=== PATIENT | female | born 1975 | race Hispanic/Latino ===

== ENCOUNTER 2017-07-02 11:29 | Emergency (ER) | payer SELFPAY, OTHER ==
[~2017-07-02 11:29] MED LIST: ISOVUE-370 76%-LOCM 1 ML ONE
[2017-07-02 12:44] LABS: BHCG - Serum Negative (NEGATIVE); Pregs Control Background? CLEAR/WHITE (CLR/WHITE); Pregs Control Bar Appear? YES (CONTROL BAR)
[2017-07-02 12:48] LABS: ALT (SGPT) 56 U/L (8-55); AST (SGOT) 57 U/L (5-34); Albumin 4.3 g/dL (3.5-5.0); Alkaline Phosphatase 114 U/L (40-150); Anion Gap 15 mmol/L (10-20); BUN (Urea Nitrogen) 57 mg/dL (7.0-18.7); Bilirubin, Total 0.7 mg/dL (0.2-1.2); Calc. Creatinine Clearance 0 mL/min (70-130); Calcium 9.5 mg/dL (7.8-10.44); Carbon Dioxide 24 mmol/L (22-29); Chloride 93 mmol/L (98-107); Estimated GFR-MDRD 50; Globulin 4.4 g/dL (2.4-3.5); Glucose 138 mg/dL (70-105); Lipase 694 U/L (8-78); Magnesium 2.9 mg/dL (1.6-2.6); Potassium 3.4 mmol/L (3.5-5.1); Protein, Total 8.7 g/dL (6.0-8.3); Sodium 129 mmol/L (136-145)
[2017-07-02] MEDS ORDERED: Ondansetron HCl/PF 4 MG/2 ML Vial ONE ×2 (12:56→14:04)
[2017-07-02 13:15] LABS: Anisocytosis SLIGHT = 6-15 cells (100X) (0-5/hpf); Band 3 % (5-11); Hemoglobin 9.4 g/dL (12.0-16.0); Hypochromia SLIGHT = 6-15 cells (100X) (0-5/hpf); Lymphocytes 12 % (21-51); MDiff Complete? YES; Mean Corpuscular HGB CONC 28.3 g/dL (32.0-36.0); Mean Corpuscular Hemoglobin 14.7 pg (27.0-31.0); Mean Corpuscular Volume 51.9 fl (81.0-99.0); Mean Platelet Volume 6.8 fL (7.4-10.4); Metamyelocyte 2 % (0-0); Monocytes 7 % (0-10); Myelocyte 5 % (0-0); Neutrophil 71 % (42-75); PLT Morphology Comment Appears Increased; Platelet Count 520 thou/uL (130-400); Polychromasia MODERATE = 3-4 cells (100X) (0-2/hpf); RBC Distribution Width 18.2 % (11.5-14.5); Red Blood Cell (RBC) Count 6.38 mill/uL (4.20-5.40); White Blood Cell (WBC) Count 15.9 thou/uL (4.8-10.8)
[2017-07-02] MEDS ORDERED: Piperacillin/Tazobactam 4.5 GM in Sodium Chloride 0.9% 100 ML IVPB SCH (13:45)
[2017-07-02] MEDS ORDERED: Morphine 4 MG/ML VIAL ONE (14:34)
[2017-07-02 14:47] LABS: Bilirubin Negative (Negative); Blood, Urine Trace (Negative); Clarity CLEAR (Clear); Glucose, Urine (Dipstick) Negative (Negative); Leukocyte Negative (Negative); Nitrite Negative (Negative); Protein, Urine (Dipstick) Trace mg/dL (Neg-Trace); Urobilinogen 0.2 mg/dL (0.2-1.0)
[2017-07-02 14:49] LABS: Pathc Cast-AUWi Flag 0.27 (0-2.49)
[2017-07-02 14:54] LABS: Specific Gravity, Urine 1.043 (1.002-1.036)
[2017-07-02 15:09] LABS: Bacteria/HPF None Seen HPF (None Seen); Hyaline Casts/LPF NONE SEEN LPF (0-3 Hyaline); RBC/HPF 0-3 HPF (0-3)
--- NOTE | 2017-07-02 15:44 | CT ---
CT ABDOMEN WITH CONTRAST CT PELVIS WITH CONTRAST: DATE: 07-02-2017 TIME: 1:15 p.m. HISTORY: 42-year-old female with nausea, emesis, and diarrhea for five days. Dr. Velazquez reported the pneumomediastinum around the esophagus by telephone with Dr. Mamta Jiménez at 1:3 3 p.m. on 07-02-2017. COMPARISON: 02-06-13 TECHNIQUE: IV injection of iodinated contrast media: Administered Oral contrast media: Not administered FINDINGS: There is a new finding of extraluminal gas around the inferior portion of the esophagus, in the poste rior inferior mediastinum. This gas tracks inferiorly a short distance to reach the periaortic region at the level of the diaphragmatic jeny. The abdominal aorta, bilateral kidneys, adrenals, pancreas, liver, spleen, and appendix are normal. No small bowel dilatation. There is diffuse mild mural thicke teresa and mild mural enhancement of the entire colon, suggestive of a mild diffuse colitis, consistent with the stated history of diarrhea. There is no pneumoperitoneum, ascites, intraperitoneal or retro peritoneal abscess, pleural effusion, or airspace density of the lung bases. There is an osteolytic lesion with sclerotic margins at the intertrochanteric region of the right pro ximal femur, with no cortical break through, unchanged since 02-06-13. This appears benign. IMPRESSION: 1. Pneumomediastinum around the lower esophagus is evidence for esophageal perforation, presumably fr om excessive vomiting. 2. Findings suggestive of a mild diffuse dillon-colitis. 3. 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 Code YASMEEN JN Adenike POS: RYAN
--- NOTE | 2017-07-02 16:09 | RAD ---
RADIOGRAPH CHEST 1 VIEW: Date: 07-02-2017 Time: 1:58 P.M. HISTORY: 42-year-old female with pneumomediastinum due to excessive vomiting. COMPARISON: None. FINDINGS: There is a thin layer of gas along the left cardiac border within the pericardium. There is gas paral leling the right and left sides of the esophagus. There is no pneumothorax. Lungs are clear. No cardi omegaly or mediastinal widening. No evidence of pneumoperitoneum. IMPRESSION: 1. Positive for pneumomediastinum. 2. No infiltrates. DEB POS: RYAN
== END 2017-07-02 15:30 | disposition short-term general hospital (02) ==
LOC: ERS 11:29
DX: K22.3 Perforation of esophagus (principal); D64.9 Anemia, unspecified; E87.1 Hypo-osmolality and hyponatremia; E87.2 Acidosis; E03.9 Hypothyroidism, unspecified
CPT/HCPCS: 36415; 51702; 71045; 74177; 80053; 81003; 81015; 83605; 83690; 83735; 84703; 85025; 86850; 86900; 86901; 87040; 87804; 96361; 96365; 96375; 96376; J2270; J2405; J2543; J7050

== ENCOUNTER 2019-05-16 18:00 | Observation (INO) | payer BC ==
[2019-05-16 20:00] VITALS: BMI 41.9
[2019-05-16] MEDS ORDERED: Ondansetron ODT 4 MG TAB PO PRN (20:12)
[2019-05-16] MEDS ORDERED: Acetaminophen 325 MG TAB PO PRN (20:12)
--- NOTE | 2019-05-16 20:17 | PDOC.FPRHP ---
- History of Present Illness Chief Complaint: anemia History of Present Illness: 43YO female who was directly admitted by her SINGER SONGWRITER, Dr. Ott, after having abnormal labs during a well woman exam in the office yesterday. Per Dr. Ott her Hgb was very low at 5.0 so she instructed the patient to go to the hospital for a blood transfusion. Per the patient, she had a pap done yesterday with Dr. Ott and labwork and began spotting after the pap so she thought she started her period. However, she states that she is no longer spotting but is cramping like she is about to start. Denies any SOB or lightheadedness. Just endorses nervousness and severe menstrual cramps. Of note, the patient reports that this will be her 3rd blood transfusion for heavy bleeding. ED Course: N/A - Allergies/Adverse Reactions Allergies Allergy/AdvReac Type Severity Reaction Status Date / Time No Known Drug Allergies Allergy Verified 02/06/13 15:05 - Home Medications Medication Instructions Recorded Confirmed Type No Known 05/16/19 05/16/19 History - History PMHx: Abnormal Uterine Bleeding, anemia PSHx: Tubal ligation FHx: Abnormal uterine bleeding- mother Social: No tobacco or drug use. Drinks socially. - Review of Systems General: denies: fever/chills Eyes: denies: vision changes ENT: denies: nasal congestion, rhinorrhea Respiratory: denies: cough, shortness of breath Cardiovascular: denies: chest pain, palpitation Gastrointestinal: reports: abdominal pain. denies: nausea Genitourinary: reports: other (no vaginal bleeding). denies: dysuria Skin: denies: rashes Musculoskeletal: denies: arthritis/arthralgias Neurological: denies: syncope, weakness Psychological: reports: anxiety. denies: depression - Vital signs BP: 134/62 HR: 84 RR: 20 Tmax: 98.4F Pox: 98% on RA Wt: 103 kg - Physical Exam Constitutional: NAD, awake, alert and oriented, well developed HEENT: normocephalic and atraumatic, grossly normal vision, grossly normal hearing Neck: supple, FROM Heart: RRR Lungs: no respiratory distress Abdomen: soft, other (mild TTP in B/L lower quadrants) Musculoskeletal: normal structure, ROM grossly normal Neurological: no focal deficit, CN II-XII intact (grossly) Skin: no rash/lesions Heme/Lymphatic: no unusual bruising or bleeding Psychiatric: good judgment and insight, intact recent and remote memory, other ( anxious appearing) FMR H&P: A/P - Problem List (1) Chronic blood loss anemia Current Visit: Yes Status: Chronic Code(s): D50.0 - IRON DEFICIENCY ANEMIA SECONDARY TO BLOOD LOSS (CHRONIC) (2) Abnormal uterine bleeding Current Visit: Yes Status: Chronic Code(s): N93.9 - ABNORMAL UTERINE AND VAGINAL BLEEDING, UNSPECIFIED (3) Obesity Current Visit: Yes Status: Chronic Code(s): E66.9 - OBESITY, UNSPECIFIED - Plan 43YO female who was directly admitted for a blood transfusion after it was noted that her Hgb level was down to 5.0 per labwork done on 05/15/19. Chronic blood loss anemia: - VS stable and patient asymptomatic suggesting this is a chronic issue. Will transfuse 2U of PRBCs and repeat a CBC at 0600 on 05/17. - Will continue to monitor closely for bleeding and monitor vitals closely as well. Abnormal Uterine Bleeding: - Will need an outpatient workup with SINGER SONGWRITER. - Will ensure patient has appropriate meds upon d/c to lessen her menstrual bleeding since she anticipates she will start menstruating within the next 1-2 days. - If menstruation begins during hospitalization will administer TXA and/or progesterone PRN. Obesity: - Will encourage lifestyle changes. Disposition/LOS: Dispo: Will admit to tele obs for transfusion overnight with anticipated d/c home tomorrow with close follow-up with SINGER SONGWRITER as an outpatient. FMR H&P: Upper Level - Plan Date/Time: 05/16/192016 I, [], have evaluated this patient and agree with findings/plan as outlined by management internship resident. Pertinent changes/additions are listed here. Addendum - Attending - Attending Attestation Date/Time: 05/17/19 0643 I personally evaluated the patient and discussed the management with Dr. Alegria. I agree with the History, Examination, Assessment and Plan documented above.
[2019-05-16] MEDS ORDERED: Acetaminophen 500 MG TAB PO PRN (20:38)
--- NOTE | 2019-05-17 04:23 | PDOC.HOSPP ---
- Subjective Encounter Date: 05/17/19 Encounter Time: 06:00 Subjective: Patient reports she feel well this AM. Denies any vaginal bleeding, lightheadedness, SOB, chest pain, or fever/chills. Reports persistent menstrual cramping. - Objective Vital Signs & Weight: Vital Signs (12 hours) Temp Pulse Pulse Resp BP BP Pulse Ox 05/17/19 01:30 98.5 F 70 16 121/53 L 99 05/17/19 01:00 98.1 F 73 16 116/56 L 96 05/16/19 19:47 98.4 F 84 20 134/62 98 Weight Weight 103.963 kg I&O: 05/15/19 05/16/19 05/17/19 06:59 06:59 06:59 Intake Total 0 Balance 0 Hospitalist ROS - Review of Systems Constitutional: denies: fever, chills Eyes: denies: vision change ENT: denies: nose congestion, throat pain Cardiovascular: denies: chest pain, light headedness Gastrointestinal: reports: abdominal pain. denies: nausea, vomiting Genitourinary: reports: other (no vaginal bleeding). denies: dysuria Musculoskeletal: reports: other (no myalgias/arthralgias) Skin: denies: rash, lesions Neurological: denies: weakness, numbness - Exam General Appearance: NAD, awake alert Eye: anicteric sclera ENT: normocephalic atraumatic, moist mucosa Neck: supple Heart: RRR, no murmur Respiratory: CTAB Gastrointestinal: soft, non-tender, non-distended, normal bowel sounds Skin: normal turgor Neurological: cranial nerve grossly intact, no focal deficits Psychiatric: normal affect, A&O x 3 Hosp A/P (1) Chronic blood loss anemia Code(s): D50.0 - IRON DEFICIENCY ANEMIA SECONDARY TO BLOOD LOSS (CHRONIC) Status: Chronic (2) Abnormal uterine bleeding Code(s): N93.9 - ABNORMAL UTERINE AND VAGINAL BLEEDING, UNSPECIFIED Status: Chronic (3) Obesity Code(s): E66.9 - OBESITY, UNSPECIFIED Status: Chronic - Plan DVT proph w/SCDs 43YO female who was directly admitted for a blood transfusion after it was noted that her Hgb level was down to 5.0 per labwork done on 11/14/19. Chronic blood loss anemia: - VS stable overnight. Currently receiving 2nd unit of PRBCs. First unit was not started until ~00:00 as patient had abs in her blood. - Will get a repeat CBC ~4 hours after 2nd unit has been transfused. - Will continue to monitor closely for bleeding and monitor vitals closely as well. Abnormal Uterine Bleeding: - Will need an outpatient workup with DISPATCH CLERK. - Will ensure patient has appropriate meds upon d/c to lessen her menstrual bleeding since she anticipates she will start menstruating within the next 1-2 days. - If menstruation begins during hospitalization will administer TXA and/or progesterone PRN. Obesity: - Will encourage lifestyle changes. Dispo: Anticipate d/c home later today pending the patient's Hgb responds adequately following 2U of PRBCs w/ close f/u with DISPATCH CLERK. Addendum - Attending - Attending Attestation Date/Time: 05/17/19 4162 I personally evaluated the patient and discussed the management with Dr. Alegria. I agree with the History, Examination, Assessment and Plan documented above. Rx for Provera on her chart for heavy menses prior to next appointment.
[2019-05-17] MEDS ORDERED: Ibuprofen 800 MG TAB PO PRN (05:59)
[2019-05-17] MEDS ORDERED: FLU VACC QS2019-20(6MOS UP)/PF 60 MCG/0.5 ML SYRINGE IM ONE (09:00)
[2019-05-17 12:23] LABS: #Eosinphils 0.4 thou/uL (0.0-0.7); #Lymphocytes 1.3 thou/uL (1.20-3.40); #Monocytes 0.6 thou/uL (0.11-0.59); #Neutrophils 3.6 thou/uL (1.40-6.50); %Basophils 0.6 % (0.0-1.0); %Eosinophils 7.1 % (0.0-10.0); %Monocytes 10.3 % (0.0-10.0); Hemoglobin 7.3 g/dL (12.0-16.0); Mean Corpuscular HGB CONC 30.3 g/dL (32.0-36.0); Mean Corpuscular Hemoglobin 17.5 pg (27.0-31.0); Mean Corpuscular Volume 57.7 fL (78.0-98.0); Mean Platelet Volume 5.9 fL (7.4-10.4); Platelet Count 315 thou/uL (130-400); RBC Distribution Width 32.8 % (11.5-14.5); Red Blood Cell (RBC) Count 4.15 mill/uL (4.20-5.40)
[2019-05-17 12:27] LABS: Anisocytosis MODERATE=16-30 cells (100X) (0-5/hpf); Hypochromia MODERATE=16-30 cells (100X) (0-5/hpf); MDiff Complete? YES; Microcytosis MODERATE=15-30 cells (100X) (0-5/hpf); Ovalocytes SLIGHT = 2-5 cells (100X) (0-1/hpf); Platelet Morphology Comment Appears Adequate; Polychromasia SLIGHT = 2-3 cells (100X) (0-2/hpf); Schistocytes SLIGHT = 2-5 cells (100X) (0-1/hpf); Spherocytes SLIGHT = 1-5 cells (100X) (None Seen); Target Cells SLIGHT = 2-5 cells (100X) (0-1/hpf)
--- NOTE | 2019-05-17 17:49 | PDOC.PP ---
Post Progress Note Subjective: Pt is 43yo with symptomatic anemia and menorragia. Pt is sp 2units of prbc's hemoglobin up to 7.3 for 5.4. Pt remains symptomatic though improved. She reports continued sob and some lightheadedness with ambulation. She has responsibilities at home and at work that she feels she cant fulfill the way she currently feels. Will give her another unit of blood and reassess. Vital Signs (12 hours) Temp Pulse Pulse Resp BP BP Pulse Ox 05/17/19 15:05 98 F 66 18 166/70 H 99 05/17/19 11:57 98.7 F 69 15 141/60 H 98 05/17/19 08:11 98.2 F 61 15 138/65 99 05/17/19 08:10 98.2 F 66 18 140/67 100 Weight Weight 103.963 kg Result Diagrams: 05/18/19 05:00 Additional Labs: Post Labs Blood Type O POSITIVE 05/16/19 20:38 Addendum - Attending - Attending Attestation Date/Time: 05/18/19 0832 I personally evaluated the patient and discussed the management with Dr. Gardner I agree with the History, Examination, Assessment and Plan documented above with any addition or exceptions noted below. I discussed with Ms Poon how she felt after 2 units prbc and hbg of 7.3. After trial of walking one flight of stairs and walk down the [place] pt reports she still has dizziness and lightheadedness. will keep overnight and given one more unit of prbc. anticipate dc tomorrow.
[2019-05-18 05:25] LABS: Hemoglobin 8.4 g/dL (12.0-16.0); Mean Corpuscular HGB CONC 30.7 g/dL (32.0-36.0); Mean Corpuscular Hemoglobin 18.4 pg (27.0-31.0); Mean Platelet Volume 5.8 fL (7.4-10.4); Platelet Count 318 thou/uL (130-400); RBC Distribution Width 32.5 % (11.5-14.5); Red Blood Cell (RBC) Count 4.56 mill/uL (4.20-5.40)
[2019-05-18 08:12] VITALS: BP 167/70; TEMP 97.9
--- NOTE | 2019-05-18 08:40 | PDOC.FM ---
- Subjective Subjective: NAEO. Received 1 PRBC. Denies fatigue, dizziness, lightheadedness, feels better. Hasn't gotten up to walk yet. Started period today. - Objective Vital Signs & Weight: Vital Signs (12 hours) Temp Pulse Pulse Resp BP BP BP 05/18/19 07:46 97.9 F 58 L 16 167/70 H 05/18/19 04:55 98.3 F 60 20 156/68 H 05/17/19 23:30 97.9 F 67 16 151/67 H Pulse Ox 05/18/19 07:46 99 05/18/19 04:55 99 05/17/19 23:30 99 Weight Weight 103.963 kg I&O: 05/17/19 05/18/19 05/19/19 06:59 06:59 06:59 Intake Total 590 2340 Output Total 500 Balance 590 1840 Result Diagrams: 05/18/19 05:00
--- NOTE | 2019-05-18 08:43 | PDOC.HOSPP ---
- Subjective Encounter Date: 05/18/19 Subjective: Pt endorses feeling better today after receiving 1 unit of PRBC. Hasn't gotten up to walk. Ready to go home/back to work - Objective Vital Signs & Weight: Vital Signs (12 hours) Temp Pulse Pulse Resp BP BP BP 05/18/19 07:46 97.9 F 58 L 16 167/70 H 05/18/19 04:55 98.3 F 60 20 156/68 H 05/17/19 23:30 97.9 F 67 16 151/67 H Pulse Ox 05/18/19 07:46 99 05/18/19 04:55 99 05/17/19 23:30 99 Weight Weight 103.963 kg I&O: 05/17/19 05/18/19 05/19/19 06:59 06:59 06:59 Intake Total 590 2340 Output Total 500 Balance 590 1840 Result Diagrams: 05/18/19 05:00 Hospitalist ROS - Review of Systems Eyes: denies: pain, vision change Respiratory: denies: shortness of breath, hemoptysis Gastrointestinal: denies: nausea, vomiting, abdominal pain Neurological: denies: weakness, incoordination - Medication Medications: Active Medications Generic Name Dose Route Start Last Admin Trade Name Freq PRN Reason Stop Dose Admin Acetaminophen 1,000 mg 05/16/19 20:38 05/17/19 10:09 Tylenol PO 1,000 mg Q8H PRN Administration Pain - Exam General Appearance: NAD Eye: PERRL, anicteric sclera ENT: normocephalic atraumatic, no oropharyngeal lesions Neck: supple Heart: RRR, no murmur Respiratory: CTAB, no wheezes Gastrointestinal: soft, non-tender Musculoskeletal: normal tone, normal strength Psychiatric: normal affect, normal behavior, A&O x 3 Hosp A/P (1) Abnormal uterine bleeding Code(s): N93.9 - ABNORMAL UTERINE AND VAGINAL BLEEDING, UNSPECIFIED Status: Chronic (2) Chronic blood loss anemia Code(s): D50.0 - IRON DEFICIENCY ANEMIA SECONDARY TO BLOOD LOSS (CHRONIC) Status: Chronic (3) Obesity Code(s): E66.9 - OBESITY, UNSPECIFIED Status: Chronic - Plan 43YO female who was directly admitted for a blood transfusion after it was noted that her Hgb level was down to 5.0 per labwork done on 05/15/19. Chronic blood loss anemia: - s/p 1 PRBC last night with improvement in Hb 7.3 -> 8.4 - Will have patient walk to ensure stability before discharge -Given rx for depo -Discussed f/u with Dr. Ray this week Abnormal Uterine Bleeding: - Will need an outpatient workup with ASSURANCE ASSISTANT. Obesity: - Will encourage lifestyle changes. Dispo: Discharge today
--- NOTE | 2019-05-19 10:11 | DIS ---
DATE OF ADMISSION: 05/16/2019 DATE OF DISCHARGE: 05/18/2019 ATTENDING PHYSICIAN: Dr. Borden. RESIDENT: Karyn Gardner, PGY2 HISTORY OF PRESENT ILLNESS: A 43-year-old, who was directly admitted by Dr. Ray after having abnormal labs including hemoglobin of 5 from abnormal uterine bleeding. The patient has had history of heavy menstrual cycles. In hospital she received 3 units of PRBCs with improvement in her hemoglobin to 8.4. On day of discharge, the patient was stable and had much improvement in her symptoms. Precautions were discussed in regard to when to return including worsening of symptoms, lightheadedness, and lost consciousness and was advised to take it easy in order to not over exert herself as her hemoglobin will start to regenerate. It was instructed that she follow up with Dr. Ray for further discussion of interventions to reduce menorrhagia including Mirena placement. She was also given a prescription for progesterone in order to take when she starts having her periods in order to prevent further acute blood loss. All questions were answered. The patient was stable on date of discharge. DISCHARGE MEDICATIONS: 1. Progesterone 2. Iron. FOLLOWUP INSTRUCTIONS: Please follow up with Dr. Ray. Job ID: [id number] MTDD
== END 2019-05-18 10:18 | disposition home or self-care (01) ==
LOC: 2SW 18:00
PROVIDERS: ADMIT Family Medicine; ATTEND Family Medicine
DX: D50.0 Iron deficiency anemia secondary to blood loss (chronic) (principal); N93.9 Abnormal uterine and vaginal bleeding, unspecified; E66.9 Obesity, unspecified; Z68.41 Body mass index [BMI] 40.0-44.9, adult
CPT/HCPCS: 36415; 36430; 83036; 85025; 85027; 86850; 86870; 86900; 86901; 86905; 86922; 90471; 90686; G0008; G0378; P9016

== ENCOUNTER 2019-07-27 16:20 | Emergency (ER) | payer BC ==
--- NOTE | 2019-07-27 17:47 | RAD ---
RIGHT FOOT THREE VIEWS: HISTORY: Right foot pain after injury. COMPARISON: None. FINDINGS: Three views of the right foot show no evidence of acute fracture or dislocation. No soft tissue swell ing is seen. No significant degenerative changes are seen. IMPRESSION: No evidence of acute osseous abnormality. POS: C
== END 2019-07-27 17:34 | disposition home or self-care (01) ==
LOC: ERS 16:20
DX: S90.31XA Contusion of right foot, initial encounter (principal); D64.9 Anemia, unspecified; E03.9 Hypothyroidism, unspecified; W22.8XXA Striking against or struck by other objects, initial encounter; Y92.69 Other specified industrial and construction area as the place of occurrence of the external cause

== ENCOUNTER 2022-10-20 09:13 | Emergency (ER) | payer BC, OTHER ==
[2022-10-20] MEDS ORDERED: Promethazine 25 MG TAB ONE (10:45)
[2022-10-20] MEDS ORDERED: Acetaminophen 500 MG TAB ONE (10:45)
[2022-10-20 11:14] LABS: Bacteria/HPF 4+ HPF (None Seen); Bilirubin Negative (Negative); Blood, Urine Negative (Negative); Clarity Turbid (Clear); Glucose, Urine (Dipstick) Normal (Negative); Ketone, Urine Trace mg/dL (Negative); Leukocyte 500 Leu/uL (Negative); Nitrite 2+ (Negative); Protein, Urine (Dipstick) 20 mg/dL (Neg-Trace); Specific Gravity, Urine 1.028 (1.002-1.036); Squamous Epithelial 0-3 HPF (0-3); WBC/HPF Greater than 50 HPF (0-3)
[2022-10-20 11:53] LABS: SARS-CoV-2 NAA Rapid Test Not Detected (NotDetected)
== END 2022-10-20 12:18 | disposition home or self-care (01) ==
LOC: ERS 09:13
DX: N39.0 Urinary tract infection, site not specified (principal); E03.9 Hypothyroidism, unspecified; Z20.822 Contact with and (suspected) exposure to COVID-19
CPT/HCPCS: 81003; 81015; 99283; Q0169